=== PATIENT | female | born 1970 | race Asian ===

== ENCOUNTER 2018-09-10 06:06 | Day surgery (SDC) | payer OTHER ==
[2018-09-10] MEDS ORDERED: LACTATED RINGERS 1,000 ML IV ONE ×2 (06:23→09:25)
[2018-09-10] MEDS ORDERED: ceFAZolin 2 GM/50 ML 2 GM/50 ML BAG IV ONE ×2 (06:35→08:04)
[2018-09-10 06:54] LABS: HCG UR QUAL NEGATIVE
[2018-09-10] MEDS ORDERED: BUPIVACAINE 0.25% PF 10 ML VIAL ONE (07:04)
--- NOTE | 2018-09-10 07:07 | ANESTHESIA ---
Pre-Anesthesia VS, & Labs - Diagnosis left carpal tunnel syndrome - Procedure left carpal tunnel release Vital Signs: Temp Pulse Resp BP Pulse Ox 37 C 63 16 127/77 99 09/10/18 06:23 09/10/18 06:23 09/10/18 06:23 09/10/18 06:23 09/10/18 06:23 Height 5 ft 2 in Weight (kg) 54.43 kg - NPO >8 hours - Is Patient ?: No - Lab Results Lab results reviewed: Yes Home Medications and Allergies Home Medications: Ambulatory Orders Levothyroxine Sodium [Synthroid] 50 mcg PO DAILY 09/08/18 Levothyroxine Sodium [Synthroid] 50 mcg PO DAILY 09/08/18 Allergies/Adverse Reactions: Allergies Allergy/AdvReac Type Severity Reaction Status Date / Time povidone-iodine Allergy Rash Verified 09/10/18 06:47 [From Betadine] soap [From Betadine] Allergy Rash Verified 09/10/18 06:47 adhesive AdvReac Hives Verified 09/08/18 09:43 Anes History & Medical History - Anesthetic History Anesthesia Complications: reports: No previous complications Family history of Anesthesia Complications: Denies Family history of Malignant Hyperthermia: Denies - Medical History Pulmonary: reports: None Gastrointestinal: reports: None Urinary: reports: None Musculoskeletal: reports: Other Endocrine/Autoimmune: reports: None Skin: reports: None - Surgical History General: Cholecystectomy Eyes Ears Nose Throat (EENT): Other Gynecologic: Dilation and currettage Exam General: Alert, Oriented x3, Cooperative, No acute distress Dental: Other (bridge) Mouth Openin Fingerbreadth Neck Mobility: Normal Mallampati classification: III Thyromental Distance: 4-6 cm Respiratory: Lungs clear, Normal breath sounds, No respiratory distress, No accessory muscle use Cardiovascular: Regular rate, Normal S1, Normal S2, No murmurs Mental/Cognitive Status: Alert/Oriented X3, Normal for patient Plan Anesthesia Type: General Consent for Procedure(s) Verified and Reviewed: No Code Status: Attempt Resuscitation ASA classification: 1-Healthy patient Is this case an emergency?: No
[2018-09-10] MEDS ORDERED: BUPIVACAINE 0.25% PF 30 ML VIAL SUBQ ONE ×2 (08:03)
[2018-09-10] MEDS ORDERED: KETOROLAC 30 MG/ML VIAL IVP ONE (08:04)
[2018-09-10] MEDS ORDERED: LIDOCAINE-MPF 2% 5 ML VIAL IM ONE (08:04)
[2018-09-10] MEDS ORDERED: ONDANSETRON 4 MG/2 ML VIAL IVP ONE (08:04)
[2018-09-10] MEDS ORDERED: PROPOFOL 200 MG/20 ML VIAL IVP ONE (08:04)
[2018-09-10] MEDS ORDERED: fentaNYL 100 MCG/2 ML VIAL IVP ONE (08:04)
[2018-09-10] MEDS ORDERED: ONDANSETRON 4 MG/2 ML VIAL IVP PRN (08:34)
[2018-09-10] MEDS ORDERED: oxyCODONE 5 MG TABLET PO PRN (08:34)
--- NOTE | 2018-09-10 08:58 | OPERATIVE REPORT ---
Operative Report - General Procedure Date: 09/10/18 Planned Procedure: Left open carpal tunnel release Pre-Op Diagnosis: Left carpal tunnel syndrome Procedure Performed: Left open carpal tunnel release Post Op Diagnosis: Left carpal tunnel syndrome - Procedure Note Primary Surgeon: NIK ADAM Secondary Surgeon: LOY HAIR Anesthesia Technique: General LMA Estimated Blood Loss (mL): 10 - Other Other Information/Narrative: Tourniquet Time: 12 minutes at 250mmHg. Specimen(s) Information: None Complication(s): None Condition: Stable to recovery Indications for Surgery: The patient is a 47-year-old female with a 5-month history of left hand numbness and painful paresthesias in the median nerve distribution. Clinical exam and EMG consistent with left carpal tunnel syndrome. EMG demonstrated positive sharp waves and fibrillations, and nerve conduction study demonstrated increased conduction latency across the left wrist. She had been splinting for approximately 4 months without durable improvement in symptoms. She had failed non-operartive management and desired surgical intervention. Risks of surgery were discussed to include bleeding, infection, postoperative wrist stiffness, damage to nerves (including the median nerve and recurrent motor branch to the thenar musculature, ulnar nerve), vessels, tendons, ligaments, anesthesia complications to include medication side effects and allergic reactions, blood clot, stroke, heart attack and even . After a discussion, they wished to proceed. Findings: Thickened transverse carpal ligament Descriptions of Procedure: The patient was met in the Preoperative Holding Area, at which time preoperative paperwork was confirmed. The left hypothenar eminence was signed. The patient was then brought to Main Operating Room, placed supine on the Operating Room table, at which time pre procedure timeout was conducted to confirm correct patient, correct extremity and correct procedure and also to confirm presence and sterility of all required equipment and to confirm that antibiotics were being administered in the form of 2g of intravenous Ancef. After this was confirmed, general anesthesia was induced. The operative extremity was then prepped and draped over a hand table in the normal sterile fashion after a well- padded tourniquet was placed on the proximal arm. A final timeout was conducted to confirm the correct patient, correct extremity and correct procedure and to confirm that antibiotics had been administered within 30 minutes of incision time. The operative extremity was then exsanguinated with an Esmarch bandage and tourniquet inflated to 250mmHg. Estrada's cardinal line, and the ulnar border of the flexed fourth digit, and the hook of hamate were marked on the hand. A 3cm longitudinal incision was made with a #15 blade through skin and subcutaneous tissue. Dissection was further carried out with tenotomy scissors. Small crossing vessels were coagulated with bipolar electrocautery, the palmar fascia was exposed, and split longitudinally in line with its fibers and the transverse carpal ligament was exposed. A 15 blade was used to make a small incision in the transverse carpal ligament, and then a small mosquito clamp was introduced directly deep to the ligament above the contents of the carpal tunnel to gently free off any adhesions between the deep surface of the transverse carpal ligament and underlying structures. Dissection was carried distally under direct visualization, releasing the transverse carpal ligament until the palmar fat was was visualized. Attention was then turned proximally, and the transverse carpal ligament was sharply incised under direct visualization. Metzenbaum scissors were then used bluntly to create a plane above and below the transverse carpal ligament and antebrachial fascia. These were incised in line with the nerve approximately 2 cm proximal to the distal wrist crease. This was performed under direct visualization. A [place] was passed both proximally and distally to ensure no tight constrictive bands, followed by digital examination to confirm that there were no constricted areas remaining over the nerve. Satisfied that the carpal tunnel had been completely released, the wound was i rrigated, and the tourniquet was let down. Pressure was held on the incision for approximately 5 minutes, and bleeding points were then cauterized with bipolar electrocautery. After ensuring good hemostasis, the wound was closed using 4-0 Prolene in interrupted horizontal mattress fashion. 10 mL of quarter percent Marcaine plain, was injected into the eduardo-incisional soft tissues. The wound was then dressed with Xeroform, 4 x 4 gauze, marixa, webril and a compressive Josh wrap. The patient was then awakened from general anesthesia without complication, brought to the Post Anesthesia Care for further recovery. Postoperative Plan: 1. The patient will be discharged from the Same Day Surgery Unit when discharge criteria are met. 2. The patient will remain in a soft dressing until follow-up. They can begin gentle finger motion today and wrist range of motion on postoperative day #1 or #2 as pain allows. 3. The patient will follow up in 10-14 days for dressing removal, suture removal, steristrip placement and range of motion check. 4. Expect return to full activity in 6 weeks, they may have wrist stiffness postoperatively.
[2018-09-10] MEDS ORDERED: ONDANSETRON 4 MG/2 ML VIAL ONE (09:35)
[2018-09-10] MEDS ORDERED: oxyCODONE 5 MG TABLET ONE (09:36)
[2018-09-10 10:11] VITALS: BP 127/74
== END 2018-09-10 06:07 | disposition home or self-care (01) ==
LOC: SDS 06:06
PROVIDERS: ATTEND Orthopaedic Surgery
PROC: 01N50ZZ Release Median Nerve, Open Approach (ICD-10-PCS; principal; 2018-09-10 07:30)
DX: G56.02 Carpal tunnel syndrome, left upper limb (principal)
CPT/HCPCS: 64721; 81025; J0690; J7120

== ENCOUNTER 2018-09-12 11:08 | Emergency (ER) | payer OTHER ==
[2018-09-12 11:15] VITALS: BP 156/82
[2018-09-12] MEDS ORDERED: predniSONE 20 MG TABLET PO STA (11:27)
--- NOTE | 2018-09-12 11:32 | ED Physician Documentation ---
History of Present Illness - Stated complaint Stated Complaint: POST SURG COMPLICATION - Chief complaint Chief Complaint: Wound - History obtained from History obtained from: Patient - History of Present Illness Timing: Today Pain level max: 6 Pain level now: 5 Improved by: Benadryl Worsened by: Nothing - Additonal information Additional information: 47-year-old female status post carpal tunnel surgery 2 days ago. States that she noticed a rash on her left arm today. This was the arm that the surgery was performed on. Had a similar rash after her neck surgery. Take Benadryl to help with the itching. She also states she has not had a bowel movement for 3 days. Took Dulcolax x1. No nausea or vomiting. No fever. Review of Systems Constitutional: denies: Fever GI: denies: Vomiting, Diarrhea : denies: Now EGA Musculoskeletal: denies: Neck pain, Back pain Neurologic: denies: Headache PD PAST MEDICAL HISTORY - Past Medical History Respiratory: None Endocrine/Autoimmune: None GI: None : None HEENT: Other Psych: Bipolar disorder Musculoskeletal: Other Derm: None - Past Surgical History General: Cholecystectomy /DIRECTOR CORPORATE COMPLIANCE: Dilation and currettage HEENT: Other - Present Medications Home Medications: Ambulatory Orders Medication Instructions Recorded Confirmed Levothyroxine Sodium [Synthroid] 50 mcg PO DAILY 09/08/18 09/10/18 Polyethylene Glycol 3350 [Miralax] 17 gm PO DAILY PRN #1 bottle 09/12/18 predniSONE [Prednisone] 40 mg PO DAILY #6 tablet 09/12/18 - Allergies Allergies/Adverse Reactions: Allergies Allergy/AdvReac Type Severity Reaction Status Date / Time povidone-iodine Allergy Rash Verified 09/10/18 06:47 [From Betadine] soap [From Betadine] Allergy Rash Verified 09/10/18 06:47 adhesive AdvReac Hives Verified 09/08/18 09:43 PD ED PE NORMAL - Vitals Vital signs reviewed: Yes - General General: Alert and oriented X 3, No acute distress - Cardiac Cardiac: RRR - Respiratory Respiratory: No respiratory distress, Clear bilaterally - Abdomen Abdomen: Soft, Non tender, Non distended - Derm Derm: Warm and dry - Extremities Extremities: Other (Maculopapular exanthem to the left arm. No vesicles. No pustules. Splint is on the left wrist) - Neuro Neuro: Alert and oriented X 3 Results - Vitals Vitals: Vital Signs - 24 hr 09/12/18 11:10 Temperature 37 C Heart Rate 65 Respiratory 18 Rate Blood Pressure 156/82 H O2 Saturation 100 Oxygen O2 Source Room air PD MEDICAL DECISION MAKING - ED course Complexity details: considered differential, d/w patient ED course: Patient with what appears to be an allergic reaction likely to the cleansing solution used before surgery. Will place on steroids for home. She also has constipation will place on MiraLAX for this. No evidence of bowel obstruction. Patient counseled regarding signs and symptoms for which I believe and urgent re-evaluation would be necessary. Patient with good understanding of and agreement to plan and is comfortable going home at this time This document was made in part using voice recognition software. While efforts are made to proofread this document, sound alike and grammatical errors may occur. She is neurovascular intact in the left hand. Able to move all fingers well, brisk cap refill. Departure - Departure Disposition: 01 Home, Self Care Clinical Impression: Allergic reaction Qualifiers: Encounter type: initial encounter Qualified Code(s): T78.40XA - Allergy, unspecified, initial encounter Constipation Qualifiers: Constipation type: unspecified constipation type Qualified Code(s): K59.00 - Constipation, unspecified Condition: Good Instructions: ED Drug React Allergic, ED Constipation Follow-Up: DICKSON SEGURA DO [Primary Care Provider] - Within 1 week Prescriptions: Polyethylene Glycol 3350 [Miralax] 17 gm PO DAILY PRN #1 bottle PRN Reason: Constipation predniSONE [Prednisone] 40 mg PO DAILY #6 tablet Comments: Use the medications as prescribed. Return if you worsen. Drink plenty of water. Follow-up with your orthopedist next week for repeat evaluation and further care of your wrist. Discharge Date/Time: 09/12/18 11:37
== END 2018-09-12 11:37 | disposition home or self-care (01) ==
LOC: ED 11:08
DX: T78.40XA Allergy, unspecified, initial encounter (principal); X58.XXXA Exposure to other specified factors, initial encounter; K59.00 Constipation, unspecified; Z98.890 Other specified postprocedural states
CPT/HCPCS: 99283; J7512

== ENCOUNTER 2020-01-10 11:04 | Outpatient (CLI) | payer OTHER ==
--- NOTE | 2020-01-11 08:31 | Mammography Report ---
BILATERAL DIGITAL SCREENING MAMMOGRAM: 01/10/2020 CLINICAL: Routine screening. Comparison is made to exams dated: 09/01/2018 mammogram, 08/12/2016 mammogram, and 07/17/2015 mammogram - [facility]. The tissue of both breasts is extremely dense, which lowers the sensiti vity of mammography. There is a 1.2 cm oval equal density focal asymmetry in the left breast central to the nipple middle depth. This is more prominent and increased in size. No other significant masses, calcifications, or other findings are seen in either breast. IMPRESSION: INCOMPLETE: NEEDS ADDITIONAL IMAGING EVALUATION The 1.2 cm oval equal density focal asymmetry in the left breast is indeterminate. Additional views with possible ultrasound are recommended. This exam was interpreted at Station ID: [id number]. NOTE: For mammograms, a report in lay terms will be sent to the patient. Approximately 15% of breast malignancies will not be visualized mammographically. In the management of a palpable breast mass, a negative mammogram must not discourage biopsy of a clinically suspicious lesion. Electronically Signed By: Armando Decker M.D. aty/:01/10/2020 15:04:59 ACR BI-RADS Category 0: Incomplete 3340F D -Extremely dense 0 Mammo and [place] [id number] Immediate follow-up L
== END 2020-01-10 11:05 | disposition home or self-care (01) ==
LOC: DI.N 11:04
DX: Z12.31 Encounter for screening mammogram for malignant neoplasm of breast (principal); R92.8 Other abnormal and inconclusive findings on diagnostic imaging of breast
CPT/HCPCS: 77067

== ENCOUNTER 2020-02-28 10:45 | Outpatient (CLI) | payer OTHER ==
--- NOTE | 2020-02-29 08:44 | Mammography Report ---
UNILATERAL LEFT DIGITAL DIAGNOSTIC MAMMOGRAM 3D/2D: 02/28/2020 CLINICAL: Patient returns today to evaluate a focal asymmetry in the left breast. Comparison is made to exams dated: 01/10/2020 mammogram - [facility], 09/01/2018 mamm ogram, 07/04/2018 mammogram, 08/12/2016 mammogram, and 07/17/2015 mammogram - [facility]. The tissue of left breast is extremely dense, which lowers the sensitivity of mammography. The 1.2 cm oval focal asymmetry in the left breast central to the nipple middle depth does not persis t on tomographic views obtained today and likely represents superimposed fibroglandular tissue. No other significant masses or calcifications are seen in the breast. IMPRESSION: BENIGN There is no mammographic evidence of malignancy. A 1 year screening mammogram is recommended. This exam was interpreted at Station ID: [id number]. NOTE: For mammograms, a report in lay terms will be sent to the patient. Approximately 15% of breast malignancies will not be visualized mammographically. In the management of a palpable breast mass, a negative mammogram must not discourage biopsy of a clinically suspicious lesion. Electronically Signed By: Saida Alejandre M.D. lk/:02/28/2020 12:06:02 ACR BI-RADS Category 2: Benign Finding(s) 3342F PARENCHYMAL PATTERN: (VD) - The breast(s) demonstrate(s) extremely dense parenchyma, limiting the sen sitivity of mammography. BI-RADS CATEGORY: (2) - 2 RECOMMENDATION: (ANNUAL) - Recommend routine annual screening mammography. [id number] 1 year screening LATERALITY: (B)
== END 2020-02-28 10:46 | disposition home or self-care (01) ==
LOC: DI 10:45
PROVIDERS: ATTEND Family Medicine
DX: R92.8 Other abnormal and inconclusive findings on diagnostic imaging of breast (principal)

== ENCOUNTER 2021-03-12 10:21 | Outpatient (CLI) | payer OTHER ==
--- NOTE | 2021-03-19 10:16 | Mammography Report ---
BILATERAL DIGITAL SCREENING MAMMOGRAM 3D/2D: 03/12/2021 CLINICAL: Routine screening. Comparison is made to exams dated: 02/28/2020 mammogram, 01/10/2020 mammogram - [facility], 09/01/2018 mammogram, 07/04/2018 mammogram, 08/12/2016 mammogram, and 07/17/2015 mammogram - [facility]. The tissue of both breasts is extremely dense, which lowers the sensitivity of mammography. No significant masses, calcifications, or other findings are seen in either breast. There has been no significant interval change. IMPRESSION: NEGATIVE There is no mammographic evidence of malignancy. A 1 year screening mammogram is recommended. This exam was interpreted at Station ID: [id number]. NOTE: For mammograms, a report in lay terms will be sent to the patient. Approximately 15% of breast malignancies will not be visualized mammographically. In the management of a palpable breast mass, a negative mammogram must not discourage biopsy of a clinically suspicious lesion. Electronically Signed By: Raza Barnard M.D. [facility] [place]03/16/2021 14:31:58 ACR BI-RADS Category 1: Negative 3341F PARENCHYMAL PATTERN: (VD) - The breast(s) demonstrate(s) extremely dense parenchyma, limiting the sen sitivity of mammography. BI-RADS CATEGORY: (1) - 1 RECOMMENDATION: (ANNUAL) - Recommend routine annual screening mammography. [id number] 1 year screening LATERALITY: (B)
== END 2021-03-12 10:22 | disposition home or self-care (01) ==
LOC: DI 10:21
DX: Z12.31 Encounter for screening mammogram for malignant neoplasm of breast (principal)